=== PATIENT | male | born 1960 | race Caucasian/White ===

== ENCOUNTER 2023-08-12 08:59 | Day surgery (SDC) | payer BC ==
[~2023-08-12 08:59] MED LIST: Lactated Ringers 1,000 ML IV SCH
[2023-08-12] MEDS ORDERED: fentaNYL 100 MCG/2 ML SDV ONE (11:49)
[2023-08-12] MEDS ORDERED: Propofol 200 MG/20 ML SDV ONE (11:49)
== END 2023-08-12 13:50 | disposition home or self-care (01) ==
LOC: VM.SDS 08:59
PROVIDERS: ATTEND Student in an Organized Health Care Education/Training Program
DX: Z12.11 Encounter for screening for malignant neoplasm of colon (principal); D12.3 Benign neoplasm of transverse colon; D12.5 Benign neoplasm of sigmoid colon; R21 Rash and other nonspecific skin eruption; R79.89 Other specified abnormal findings of blood chemistry; I10 Essential (primary) hypertension; E78.2 Mixed hyperlipidemia; G47.33 Obstructive sleep apnea (adult) (pediatric); E78.00 Pure hypercholesterolemia, unspecified; G62.9 Polyneuropathy, unspecified; E66.01 Morbid (severe) obesity due to excess calories; F17.210 Nicotine dependence, cigarettes, uncomplicated; Z68.41 Body mass index [BMI] 40.0-44.9, adult; Z79.899 Other long term (current) drug therapy
CPT/HCPCS: 00811; J2704; J3010; J7120

== ENCOUNTER 2023-08-18 12:39 | Day surgery (SDC) | payer BC ==
[2023-08-18] MEDS ORDERED: fentaNYL 100 MCG/2 ML SDV ONE (13:35)
[2023-08-18] MEDS: Lactated Ringers 1,000 ML IV SCH (13:35)
[2023-08-18] MEDS ORDERED: Propofol 200 MG/20 ML SDV ONE (13:49)
== END 2023-08-18 15:50 | disposition home or self-care (01) ==
LOC: VM.SDS 12:39
PROVIDERS: ATTEND Family Medicine
DX: K21.9 Gastro-esophageal reflux disease without esophagitis (principal); K29.50 Unspecified chronic gastritis without bleeding; B96.81 Helicobacter pylori [H. pylori] as the cause of diseases classified elsewhere; M10.9 Gout, unspecified; E78.5 Hyperlipidemia, unspecified; I10 Essential (primary) hypertension; F17.210 Nicotine dependence, cigarettes, uncomplicated; Z79.82 Long term (current) use of aspirin; Z79.899 Other long term (current) drug therapy; Z88.8 Allergy status to other drugs, medicaments and biological substances; Z88.5 Allergy status to narcotic agent
CPT/HCPCS: 00731; J2704; J3010; J7120